=== PATIENT | male | born 1960 | race African-American/Black ===

== ENCOUNTER 2018-06-03 02:11 | Emergency (ER) | payer SELFPAY | END 2018-06-03 04:00 | disposition home or self-care (01) | LOC: MADERS 02:11 | DX: E11.649 Type 2 diabetes mellitus with hypoglycemia without coma (principal); I10 Essential (primary) hypertension; E78.5 Hyperlipidemia, unspecified; Z87.891 Personal history of nicotine dependence; Z79.899 Other long term (current) drug therapy; Z79.4 Long term (current) use of insulin | CPT/HCPCS: 36416; 99283 ==

== ENCOUNTER 2019-07-20 02:40 | Emergency (ER) | payer SELFPAY ==
[2019-07-20] MEDS ORDERED: Furosemide 40 MG/4 ML VIAL ONE ×2 (02:45→03:33)
[2019-07-20] MEDS ORDERED: Nitroglycerin 50 MG/250 ML BOT 250 ML ONE (02:45)
[2019-07-20 03:22] LABS: #Basophils 0.1 thou/uL (0.0-0.2); #Eosinphils 0.2 thou/uL (0.0-0.7); #Lymphocytes 1.1 thou/uL (1.20-3.40); #Monocytes 0.4 thou/uL (0.11-0.59); #Neutrophils 6.6 thou/uL (1.40-6.50); %Basophils 0.7 % (0.0-1.0); %Eosinophils 2.9 % (0.0-10.0); %Lymphocytes 13.6 % (21.0-51.0); %Monocytes 4.6 % (0.0-10.0); %Neutrophils 78.3 % (42.0-75.0); Anisocytosis SLIGHT = 6-15 cells (100X) (0-5/hpf); Burr Cells SLIGHT = 2-5 cells (100X) (0-1/hpf); Hypochromia SLIGHT = 6-15 cells (100X) (0-5/hpf); MDiff Complete? YES; Mean Corpuscular Volume 86.6 fL (78.0-98.0); Mean Platelet Volume 6.5 fL (7.4-10.4); Platelet Count 253 thou/uL (130-400); Platelet Morphology Comment Appears Adequate; Poikilocytosis SLIGHT = 6-15 cells (100X) (0-5/hpf); RBC Distribution Width 16.3 % (11.5-14.5); Red Blood Cell (RBC) Count 3.46 mill/uL (4.70-6.10); Schistocytes SLIGHT = 2-5 cells (100X) (0-1/hpf); Tear Drops SLIGHT = 2-5 cells (100X) (0-1/hpf); White Blood Cell (WBC) Count 8.4 thou/uL (4.8-10.8)
[2019-07-20] MEDS ORDERED: Aspirin Chewable 81 MG TAB ONE (03:23)
[2019-07-20 03:27] LABS: ALT (SGPT) 23 U/L (8-55); AST (SGOT) 28 U/L (5-34); Albumin 3.3 g/dL (3.5-5.0); Alkaline Phosphatase 55 U/L (40-110); Anion Gap 16 mmol/L (10-20); BUN (Urea Nitrogen) 70 mg/dL (8.4-25.7); Bilirubin, Total 0.3 mg/dL (0.2-1.2); Calc. Creatinine Clearance 0 mL/min (70-130); Calcium 7.1 mg/dL (7.8-10.44); Carbon Dioxide 15 mmol/L (22-29); Chloride 108 mmol/L (98-107); Estimated GFR-MDRD 7; Globulin 2.9 g/dL (2.4-3.5); Glucose 210 mg/dL (70-105); Protein, Total 6.2 g/dL (6.0-8.3); Sodium 134 mmol/L (136-145)
[2019-07-20] MEDS ORDERED: Oseltamivir 75 MG CAP ONE (03:33)
[2019-07-20] MEDS ORDERED: Piperacillin/Tazobactam 4.5 GM VIAL ONE (03:43)
[2019-07-20 03:44] LABS: CKMB 5.6 ng/mL (0-6.6)
[2019-07-20] MEDS ORDERED: Sodium Chloride 0.9% 100 ML BAG ONE (07:26)
--- NOTE | 2019-07-20 07:54 | RAD ---
EXAM: Single view of the chest HISTORY: Dyspnea COMPARISON: None FINDINGS: Single view of the chest shows a normal sized cardiomediastinal silhouette. Airspace opacit ies are seen in the right hilar region. The bones are unremarkable. IMPRESSION: Right hilar infiltrate.
== END 2019-07-20 04:25 | disposition short-term general hospital (02) ==
LOC: MADERS 02:40
DX: I13.10 Hypertensive heart and chronic kidney disease without heart failure, with stage 1 through stage 4 chronic kidney disease, or unspecified chronic kidney disease (principal); E11.22 Type 2 diabetes mellitus with diabetic chronic kidney disease; N18.9 Chronic kidney disease, unspecified; J81.1 Chronic pulmonary edema; E78.5 Hyperlipidemia, unspecified; E78.00 Pure hypercholesterolemia, unspecified; F17.210 Nicotine dependence, cigarettes, uncomplicated; Z79.4 Long term (current) use of insulin; Z79.899 Other long term (current) drug therapy
CPT/HCPCS: 71045; 80053; 82553; 83605; 83880; 84484; 85025; 87040; 93005; 94760; 96365; 96368; 96375; 96376; J1940; J2543; J3490

== ENCOUNTER 2020-06-02 14:25 | Outpatient (CLI) | payer OTHER ==
[2020-06-02 14:49] LABS: #Eosinphils 0.1 thou/uL (0.0-0.7); #Monocytes 0.2 thou/uL (0.11-0.59); #Neutrophils 3.7 thou/uL (1.40-6.50); %Basophils 0.8 % (0.0-1.0); %Lymphocytes 19.5 % (21.0-51.0); %Monocytes 4.7 % (0.0-10.0); Hemoglobin 11.2 g/dL (14.0-18.0); Mean Corpuscular HGB CONC 30.9 g/dL (32.0-36.0); Mean Corpuscular Hemoglobin 27.9 pg (27.0-31.0); Mean Platelet Volume 7.2 fL (7.4-10.4); Platelet Count 166 thou/uL (130-400); RBC Distribution Width 13.1 % (11.5-14.5); Red Blood Cell (RBC) Count 4.02 mill/uL (4.70-6.10); White Blood Cell (WBC) Count 5.1 thou/uL (4.8-10.8)
--- NOTE | 2020-06-02 14:49 | CT ---
Exam: Head CT without contrast HISTORY: Altered mental status. Slurred speech x1 week. COMPARISON: none FINDINGS: Hemorrhage: No intraparenchymal hemorrhage or extra-axial hematoma. Brain parenchyma: Cortical land-white matter differentiation is preserved. No mass effect or midline shift. Basilar cisterns are patent.Chronic small vessel ischemic changes white matter. Remote lacunar infarct involving the right lentiform nucleus as well as the midbrain and demetrio. There is asso ciated cavitation. Ventricular system: Ventricles and sulci are patent and symmetric. Calvarium: Intact. Sinuses and mastoid air cells: Adequate aeration. IMPRESSION: 1. No acute intracranial process 2. Remote cavitary lacunar infarcts involving the right lentiform nucleus, midbrain and demetrio.
[2020-06-02 15:04] LABS: ALT (SGPT) 15 U/L (8-55); AST (SGOT) 20 U/L (5-34); Albumin 2.9 g/dL (3.5-5.0); Alkaline Phosphatase 42 U/L (40-110); Anion Gap 14 mmol/L (10-20); BUN (Urea Nitrogen) 48 mg/dL (8.4-25.7); Bilirubin, Total 0.2 mg/dL (0.2-1.2); Calc. Creatinine Clearance 0 mL/min (70-130); Calcium 10.5 mg/dL (7.8-10.44); Carbon Dioxide 28 mmol/L (22-29); Chloride 94 mmol/L (98-107); Estimated GFR-MDRD 5; Globulin 2.7 g/dL (2.4-3.5); Glucose 476 mg/dL (70-105); Potassium 3.3 mmol/L (3.5-5.1); Protein, Total 5.6 g/dL (6.0-8.3); Sodium 133 mmol/L (136-145)
[2020-06-02 15:24] LABS: Thyroid Stimulating Hormone 1.909 uIU/mL (0.35-4.94)
== END 2020-06-02 14:26 | disposition home or self-care (01) ==
LOC: MADLAB 14:25
PROVIDERS: ATTEND Family Medicine
DX: N18.6 End stage renal disease (principal); R41.82 Altered mental status, unspecified; R47.81 Slurred speech; R90.89 Other abnormal findings on diagnostic imaging of central nervous system
CPT/HCPCS: 36415; 70450; 80053; 82607; 84443; 85025

== ENCOUNTER 2020-06-25 09:27 | Emergency (ER) | payer OTHER ==
[~2020-06-25 09:27] MED LIST: Sodium Chloride 0.9% 1,000 ML BAG ONE; Sodium Chloride 0.9% 100 ML BAG ONE
[2020-06-25] MEDS ORDERED: Iopamidol 370 76% 125 ML VIAL FS ONE (09:57)
--- NOTE | 2020-06-25 10:08 | RAD ---
Chest AP view INDICATION: History of cough COMPARISON: June 12, 2020 FINDINGS: Lungs: The lungs are clear Cardiac silhouette: Heart size is within normal limits. There are vascular consultations involving t he aortic arch. Pulmonary vasculature: Normal Pleural spaces: No pleural effusion or pneumothorax is demonstrated. Upper abdomen: No abnormality seen. Osseous structures: No acute osseous abnormality. Additional findings: There are surgical clips within the right arm. IMPRESSION: No acute cardiopulmonary abnormality.
[2020-06-25 10:46] LABS: #Lymphocytes 0.6 thou/uL (1.20-3.40); #Monocytes 0.2 thou/uL (0.11-0.59); %Basophils 0.3 % (0.0-1.0); %Eosinophils 0.1 % (0.0-10.0); %Lymphocytes 4.6 % (21.0-51.0); %Monocytes 1.9 % (0.0-10.0); Hemoglobin 13.3 g/dL (14.0-18.0); Mean Corpuscular HGB CONC 30.5 g/dL (32.0-36.0); Mean Corpuscular Hemoglobin 26.5 pg (27.0-31.0); Mean Corpuscular Volume 87.1 fL (78.0-98.0); Platelet Count 302 thou/uL (130-400); RBC Distribution Width 13.3 % (11.5-14.5); Red Blood Cell (RBC) Count 5.02 mill/uL (4.70-6.10); White Blood Cell (WBC) Count 11.8 thou/uL (4.8-10.8)
[2020-06-25 10:53] LABS: Base Excess-Venous -0.7 mmol/L (-2.0 to 3.0); Bicarbonate (HCO3v) 25.8 mmol/L (22.0-28.0); CO2 Tension (PvCO2) 48.1 mmHg (40.0-50.0); Calcium, Ionized 0.75 mmol/L (1.15-1.33); Chloride 102 mmol/L (98-107); Hemoglobin - Calc 14.4 g/dL (14.0-18.0); Potassium 5.1 mmol/L (3.5-5.1); Sodium 139 mmol/L (138-145); T. Carbon Dioxide 27.2 mmol/L (22.0-28.0); vO2 Saturation-calc 67.8 % (60.0-85.0)
--- NOTE | 2020-06-25 11:07 | CT ---
CTA Angio Chest W WO Con 06/25/2020 11:02 AM Indication: History of dyspnea and peritoneal dialysis Technique: Multiple CTA images were obtained of the thorax with IV contrast. 3-D rendering: MIP burton nstructed images were created and reviewed. Comparison: No relevant prior studies available. Findings: Pulmonary arteries: No central or segmental pulmonary embolus is evident. Heart and Aorta: There are coronary artery and thoracic aortic calcifications Mediastinum:Normal appearing. No enlarged lymph nodes. Lungs:There are patchy areas of peripheral subpleural groundglass airspace opacities with more promin ent areas of consolidation seen within the posterior medial left lower lobe. Pleural space: Clear. Upper Abdomen: There is a 1.6 cm mid left renal cyst. Visualized adrenal glands appear within normal limits. There is diffuse fatty liver Osseous Structures: There is diffuse increased sclerosis of the visualized skeletal structures suspi cious for changes of renal osteodystrophy. No acute fracture or subluxation demonstrated. There is scattered degenerative and osteoarthritic change present. Soft tissues:No abnormality. Other findings:None. Impression: 1. No central or segmental pulmonary embolus. 2. Patchy areas of peripheral subpleural groundglass opacity seen within both lungs can be seen with atypical infectious processes like viral pneumonia. Recommend correlation with Covid testing. There is a more focal area of segmental consolidation in the posterior medial left lower lobe which may ref lect a superimposed bacterial pneumonia. 3. Left renal cyst. 4. Findings of renal osteodystrophy.
[2020-06-25 11:08] LABS: ALT (SGPT) 28 U/L (8-55); AST (SGOT) 99 U/L (5-34); Albumin 2.9 g/dL (3.5-5.0); Alkaline Phosphatase 63 U/L (40-110); Anion Gap 33 mmol/L (10-20); BUN (Urea Nitrogen) 104 mg/dL (8.4-25.7); Bilirubin, Total 0.4 mg/dL (0.2-1.2); CK (CPK) 376 U/L (30-200); Calc. Creatinine Clearance 0 mL/min (70-130); Calcium 7.7 mg/dL (7.8-10.44); Carbon Dioxide 19 mmol/L (22-29); Chloride 95 mmol/L (98-107); Potassium 4.6 mmol/L (3.5-5.1); Protein, Total 8.9 g/dL (6.0-8.3); Sodium 142 mmol/L (136-145)
[2020-06-25 11:09] LABS: CKMB 1.2 ng/mL (0-6.6)
[2020-06-25] MEDS ORDERED: Piperacillin/Tazobactam 2.25 GM VIAL ONE (11:17)
[2020-06-25 11:24] LABS: Glucose 39 mg/dL (70-105)
[2020-06-25] MEDS ORDERED: Dextrose 50% Abboject 50 ML SYRINGE ONE (11:25)
[2020-06-25] MEDS ORDERED: Aspirin 300 MG Suppository ONE (11:26)
== END 2020-06-25 12:03 | disposition short-term general hospital (02) ==
LOC: MADERS 09:27
DX: J18.9 Pneumonia, unspecified organism (principal); J96.90 Respiratory failure, unspecified, unspecified whether with hypoxia or hypercapnia; I21.4 Non-ST elevation (NSTEMI) myocardial infarction; E11.649 Type 2 diabetes mellitus with hypoglycemia without coma; E78.5 Hyperlipidemia, unspecified; E78.00 Pure hypercholesterolemia, unspecified; I11.0 Hypertensive heart disease with heart failure; I50.9 Heart failure, unspecified; Z99.2 Dependence on renal dialysis; Z79.4 Long term (current) use of insulin; Z87.891 Personal history of nicotine dependence; Z79.899 Other long term (current) drug therapy
CPT/HCPCS: 36415; 36416; 71045; 71275; 80053; 82330; 82550; 82553; 82803; 83605; 83880; 84484; 85025; 87040; 93005; 94660; 94760; 96365; 96375; J2543; J3490; J7050; Q9967